=== PATIENT | female | born 1990 | race American Indian/Alaskan Native ===

== ENCOUNTER 2017-10-03 16:05 | Emergency (ER) | payer MEDICAID ==
[2017-10-03 19:21] LABS: Urine Drugs of Abuse Note Disclamer
[2017-10-03 19:30] LABS: Bilirubin,Urine NEG (Negative); Blood,Urine NEG (Negative); Ketones,Urine NEG (Negative); Leukocyte Esterase,Urine NEG (Negative); Mucus,Urine 3+ /HPF; Nitrite,Urine NEG (Negative)
[2017-10-03 19:53] LABS: Basophils % (Auto) 0.5 % (0.0-1.8); Hemoglobin 12.3 gm/dl (10.1-14.3); Mean Corpuscular HGB Conc 33 % (30-34); Mean Corpuscular Hemoglobin 28 pg (28-32); Mean Corpuscular Volume 85 fl (79-97); Platelet Count 148 K/mm3 (140-440); Red Blood Count 4.45 M/mm3 (3.65-5.03); Red Cell Distribution Width 13.2 % (13.2-15.2)
[2017-10-03 20:13] LABS: Anion Gap 15 mmol/L; BUN/Creatinine Ratio 14; Blood Urea Nitrogen 7 mg/dL (7-17); Calcium 8.8 mg/dL (8.4-10.2); Carbon Dioxide 24 mmol/L (22-30); Chloride 100.9 mmol/L (98-107); Glucose 95 mg/dL (65-100); Sodium 136 mmol/L (137-145)
[2017-10-03] MEDS ORDERED: KEPPRA PO ONE (20:58)
--- NOTE | 2017-10-03 20:58 | Emergency Department Report ---
HPI - General Chief Complaint: Alcohol Time Seen by Provider: 10/03/17 20:18 - HPI HPI: This is a 26-year-old -[place]ron[place] female who presents to the emergency department with a complaint of a possible seizure. The patient admits to drinking some alcohol and smoking marijuana this afternoon when she suddenly got very dizzy and passed out. She was found to have urinated on herself, she bit her tongue and after she became awake she was still slightly disoriented. Currently she is awake and alert and says that she just "does not feel good." She has a past medical history of lupus, Sjogren's and fibromyalgia. Her primary care physician is a Dr. Michelle Spence. She has not taken anything for her symptoms prior to presentation. She denies any previous seizures or seizure disorder. ED Past Medical Hx - Past Medical History Additional medical history: Lupus, sjrogrens disease, fibromyalgia - Social History Smoking Status: Never Smoker Substance Use Type: Alcohol, Marijuana - Medications Home Medications: Home Medications Medication Instructions Recorded Confirmed Last Taken Type Hydroxychloroquine [Plaquenil] 200 mg PO QDAY 04/29/15 11/06/15 11/06/15 History ED Review of Systems ROS: Stated complaint: ETOH (SMOKED WEED) Other details as noted in HPI Comment: All other systems reviewed and negative Constitutional: denies: chills, fever Eyes: denies: eye pain, eye discharge, vision change ENT: denies: ear pain, throat pain Respiratory: denies: cough, shortness of breath, wheezing Cardiovascular: denies: chest pain, palpitations Gastrointestinal: nausea, vomiting. denies: abdominal pain, diarrhea Genitourinary: denies: urgency, dysuria, discharge Musculoskeletal: denies: back pain, joint swelling, arthralgia Skin: denies: rash, lesions Neurological: other (dizziness, seizure). denies: headache, weakness, paresthesias Physical Exam - Physical Exam Vital Signs: Vital Signs 10/03/17 10/03/17 10/03/17 17:27 18:55 19:00 Temperature 97.5 F L 98.4 F Pulse Rate 84 77 Respiratory 18 20 Rate Blood Pressure 129/65 117/58 Blood Pressure 115/64 [Right] O2 Sat by Pulse 100 100 100 Oximetry 10/03/17 10/03/17 10/03/17 19:16 19:19 19:30 Temperature 98.4 F Pulse Rate 76 69 Respiratory 17 8 L Rate Blood Pressure 117/58 126/68 Blood Pressure [Right] O2 Sat by Pulse 100 Oximetry 10/03/17 10/03/17 10/03/17 19:46 20:00 20:16 Temperature Pulse Rate 76 85 69 Respiratory 12 10 L 11 L Rate Blood Pressure 117/58 117/58 127/75 Blood Pressure [Right] O2 Sat by Pulse 100 99 99 Oximetry 10/03/17 20:20 Temperature Pulse Rate Respiratory 16 Rate Blood Pressure Blood Pressure [Right] O2 Sat by Pulse 100 Oximetry Physical Exam: GENERAL: The patient is well-developed well-nourished. HENT: Normocephalic. Atraumatic. Patient has moist mucous membranes. EYES: Extraocular motions are intact. Pupils equal reactive to light bilaterally. There is some fatigable horizontal nystagmus. NECK: Supple. Trachea is midline. CHEST/LUNGS: Clear to auscultation. There is no respiratory distress noted. HEART/CARDIOVASCULAR: Regular. There is no tachycardia. There is no gallop rub or murmur. ABDOMEN: Abdomen is soft, nontender. Patient has normal bowel sounds. There is no abdominal distention. Obese habitus. SKIN: Skin is warm and dry. NEURO: The patient is awake, alert, and oriented. The patient is cooperative. The patient has no focal neurologic deficits. The patient has normal speech. Cranial nerves II through XII grossly intact. No dysmetria. No pronator drift. MUSCULOSKELETAL: There is no tenderness or deformity. There is no limitation range of motion. There is no evidence of acute injury. ED Course Vital Signs 10/03/17 10/03/17 10/03/17 17:27 18:55 19:00 Temperature 97.5 F L 98.4 F Pulse Rate 84 77 Respiratory 18 20 Rate Blood Pressure 129/65 117/58 Blood Pressure 115/64 [Right] O2 Sat by Pulse 100 100 100 Oximetry 10/03/17 10/03/17 10/03/17 19:16 19:19 19:30 Temperature 98.4 F Pulse Rate 76 69 Respiratory 17 8 L Rate Blood Pressure 117/58 126/68 Blood Pressure [Right] O2 Sat by Pulse 100 Oximetry 10/03/17 10/03/17 10/03/17 19:46 20:00 20:16 Temperature Pulse Rate 76 85 69 Respiratory 12 10 L 11 L Rate Blood Pressure 117/58 117/58 127/75 Blood Pressure [Right] O2 Sat by Pulse 100 99 99 Oximetry 10/03/17 20:20 Temperature Pulse Rate Respiratory 16 Rate Blood Pressure Blood Pressure [Right] O2 Sat by Pulse 100 Oximetry ED Medical Decision Making - Lab Data Result diagrams: 10/03/17 19:40 10/03/17 19:40 - EKG Data -: EKG Interpreted by Ks EKG shows normal: sinus rhythm, axis, intervals, QRS complexes, ST-T waves Rate: normal - EKG Data When compared to previous EKG there are: previous EKG unavailable Interpretation: normal EKG - Radiology Data Radiology results: report reviewed CT of the head does not show any acute intracranial process including no ischemia, shift, mass, bleeding or skull fracture. - Medical Decision Making 26-year-old female presents to the emergency department after what appears to be a seizure after the patient was taking some alcohol and smoking marijuana earlier in the day. Since she has been in the emergency department she has been awake, alert and oriented without any focal, motor or sensory deficits in her cranial nerve VII intact. CT of the head does not show any bleed, shift, mass or any acute process. Vital signs stable throughout her ED course. Labs have been unremarkable and do not show any etiology of her symptoms. She was reevaluated multiple times for multiple hours and there has been no further seizure-like activity. She appears safe for discharge home at this time. The patient's father says that they have a neurologist that one of them seize and they will get her an appointment in the next few days if possible. Since this is her first time having a seizure and it is not confirmed, she will not be started on any long-term seizure medication. They have been encouraged to return to the emergency department with any further seizure-like activity, worsening of her symptoms or any acute distress. - Differential Diagnosis seizure, syncope, polysubstance abuse Critical Care Time: No Critical care attestation.: If time is entered above; I have spent that time in minutes in the direct care of this critically ill patient, excluding procedure time. ED Disposition Clinical Impression: Seizure, Polysubstance abuse Disposition: DC-01 TO HOME OR SELFCARE Is pt being admited?: No Condition: Stable Instructions: Polysubstance Abuse (ED), New-Onset Seizure in Adults (ED) Additional Instructions: Please follow up with the neurologist as soon as possible. Return to the emergency Department with any worsening of your symptoms or any acute distress. Please try and stay away from any further alcohol or illicit drug use or abuse. Referrals: PRIMARY CARE, [Primary Care Provider] - 3-5 Days ORALIA LIPSCOMB MD [Staff Physician] - 3-5 Days Time of Disposition: 22:14
--- NOTE | 2017-10-03 21:08 | Cat Scan Report ---
FINAL REPORT PROCEDURE: CT HEAD/BRAIN WO CON TECHNIQUE: Computerized tomography of the head was performed without contrast material. HISTORY: Seizure COMPARISON: June 16, 2016 FINDINGS: Skull and scalp: Normal. Paranasal sinuses: Normal. Ventricles and subarachnoid spaces: Normal. Cerebrum: No evidence of hemorrhage, acute infarction or mass . Cerebellum and brainstem: No evidence of hemorrhage, acute infarction or mass. Vasculature: Normal. Comments: None. IMPRESSION: Normal Examination
[2017-10-03 23:13] VITALS: BP 105/63
== END 2017-10-03 23:21 | disposition home or self-care (01) ==
LOC: ED 16:05
DX: F12.10 Cannabis abuse, uncomplicated (principal); R56.9 Unspecified convulsions; M35.00 Sjogren syndrome, unspecified
CPT/HCPCS: 36415; 70450; 80048; 80307; 81001; 84443; 84703; 85025; 93005; 93010; 99284; G0480; 80320

== ENCOUNTER 2018-07-28 07:50 | Outpatient (CLI) | payer MEDICAID ==
[2018-07-28] MEDS ORDERED: LACTATED RINGERS 1,000 ML IV ONE (09:00)
[2018-07-28 09:11] LABS: Bacteria,Urine 1+ /HPF (Negative); Bilirubin,Urine NEG (Negative); Blood,Urine SM (Negative); Color,Urine Amber (Yellow); Mucus,Urine FEW /HPF
[2018-07-28 09:40] VITALS: BP 116/53
== END 2018-07-28 09:50 | disposition home or self-care (01) ==
LOC: TRG 07:50
PROVIDERS: ATTEND Obstetrics & Gynecology
DX: O47.03 False labor before 37 completed weeks of gestation, third trimester (principal); Z3A.36 36 weeks gestation of pregnancy
CPT/HCPCS: 59025; 81001; 96360; J7120

== ENCOUNTER 2018-07-31 08:20 | Inpatient (IN) | payer MEDICAID ==
[2018-07-31] MEDS ORDERED: PEPCID IV NR (09:31)
[2018-07-31] MEDS ORDERED: REGLAN IV NR (09:31)
[2018-07-31] MEDS ORDERED: LACTATED RINGERS 1,000 ML IV ONE (09:42)
--- NOTE | 2018-07-31 09:52 | History and Physical Report ---
History of Present Illness Date of examination: 07/31/18 (pt presents to Triage with c/o ROM) Chief complaint: leaking since overnight History of present illness: EDC Confirmation: 08/28/2018 Gestational Age: 6 2/7 weeks Past History : 2 Term Births: 1 Living Children: 1 Para: 1 # 1 Delivery date: 09/04/2012 Weeks Gestation: 41 Delivery type: Anesthesia type: epidural Delivery location: [facility] Sex: male weight: 8.44 Past Medical History: Anemia-sickle cell trait Sjogren syndrome fibromyalgia Past Surgical History: Reviewed history from 08/03/2012 and no changes required: Abdominal Surgery: Past Medical History Surgery (Non-game designer): Abdominal Surgery: Medical History Comments: shorogen syndrome fibromyaliga Social Hx: Patient is single no etoh, no illicit drug use, no tobacco use Infection History Hx of STD: none Partner hx. of genital herpes: no Rash, Viral, or Febrile illness since last LMP? no Varicella/Chicken Pox Status: no Genetic History Congenital Heart Defect: Mom: no Dad: no Marilou Disease: Mom: no Dad: no Thalassemia Mom: no Dad: no Neural Tube Defect Mom: no Dad: no Down's Syndrome Mom: no Dad: no Davon-Sachs Mom: no Dad: no Sickle Cell Disease/Trait Mom: yes Dad: no Hemophilia Mom: no Dad: no Muscular Dystrophy Mom: no Dad: no Cystic Fibrosis Mom: no Dad: no [place] Chorea Mom: no Dad: no Mental Retardation Mom: no Dad: no Fragile X Mom: no Dad: no Other Genetic/Chromosomal Disorder Mom: no Dad: no Child w/other defect Mom: no Dad: no Comments/Counseling: autism- pt son and her sister Enviromental Exposures Xray Exposure: no Medication, drug, or alcohol use since LMP: no Chemical/Other Exposure: no Exposure to Cat Liter: no Occupational Exposure to Children: none Current Allergies (reviewed today): No known allergies Past History CARDIOVASCULAR SURGICAL TECH History: herpes, other (bacterial vaginosis) Social history: single - Obstetrical History Expected Date of Delivery: 08/28/18 Actual Gestation: 36 Week(s) 0 Day(s) : 2 Para: 1 ( section) Number of Living Children: 1 Medications and Allergies Allergies Allergy/AdvReac Type Severity Reaction Status Date / Time No Known Allergies Allergy Verified 07/28/18 07:54 Home Medications Medication Instructions Recorded Confirmed Last Taken Type Vit-Fe Fumar-FA [ 1 tab PO QDAY 07/28/18 07/28/18 07/27/18 08: 00 History Vitamin] 1 Active Meds: Active Medications Citric Acid/Sodium Citrate (Bicitra) 30 ml PO ONCE ONE Stop: 07/31/18 09:32 Famotidine (Pepcid) 20 mg IV ONCE ONE Stop: 07/31/18 09:32 Cefazolin Sodium (Ancef/Sterile Water 2 Gm/20 Ml) 2 gm in 20 mls @ 80 mls/hr IV PREOP NR; Protocol Lactated Ringer's (Lactated Ringers) 1,000 mls @ 2,250 mls/hr IV PREOP LOURDES Stop: 08/01/18 10:27 Metronidazole (Flagyl 500 Mg/100 Ml) 500 mg in 100 mls @ 200 mls/hr IV ONCE LOURDES ; Protocol Oxytocin/Sodium Chloride (Pitocin/Ns 20 Unit/1000ml Drip) 20 units in 1,000 mls @ 0 mls/hr IV TITR LOURDES Lactated Ringer's (Lactated Ringers) 1,000 mls @ 999 mls/hr IV BOLUS ONE Stop: 07/31/18 10:42 Metoclopramide HCl (Reglan) 10 mg IV ONCE ONE Stop: 07/31/18 09:32 Valacyclovir HCl (Valtrex) 1,000 mg PO QDAY LOURDES - Vital Signs Vital signs: Vital Signs Pulse BP 99 H 122/57 07/31/18 09:23 07/31/18 09:23 Temp Pulse Resp BP Pulse Ox 99 H 122/57 07/31/18 09:23 07/31/18 09:23 - Physical Exam Breasts: Positive: deferred Cardiovascular: Regular rate, Normal S1, Normal S2 Lungs: Positive: Normal air movement Abdomen: Positive: normal appearance, soft, normal bowel sounds. Negative: distention, tenderness Genitourinary (Female): Positive: other (moderate amt of clear fluid noted on RN exam) Vulva: both: normal Vagina: Positive: normal moisture. Negative: discharge Cervix: Negative: lesion, discharge Uterus: Positive: normal size, normal contour Adnexa: both: normal Anus/Rectum: Positive: normal perianal skin, heme negative. Negative: rectal mass, hemorrhoids Extremities: Positive: normal Deep Tendon Reflex Grade: Normal +2 - Obstetrical FHR: category 1 Uterine Contraction Monitor Mode: External Cervical Dilatation: 1 (mod clear fluid noted on exam) Cervical Effacement Percentage: 50 (Nitrazine +) station: -2 Uterine Contraction Pattern: Irregular Uterine Tone Measurement Phase: Resting Uterine Contraction Intensity: Mild Results Result Diagrams: 07/31/18 10:33 All other labs normal. HSV2 + new dx BV+ GBS unknown / had not been collected HBsAg Screen Negative Negative *1 RPR Non Reactive Non Reactive *2 Rubella Antibodies, IgG 1.81 index Immune >0.99 *3 Non-immune <0.90 Equivocal 0.90 - 0.99 Immune >0.99 ABO Grouping B *4 Rh Factor Positive *5 Please note: Prior records for this patient's ABO / Rh type are not available for additional verification. Antibody Screen Negative Negative *6 WBC 4.5 x10E3/uL 3.4-10.8 *7 RBC 3.96 x10E6/uL 3.77-5.28 *8 Hemoglobin [L] 10.9 g/dL 11.1-15.9 *9 Hematocrit [L] 32.7 % 34.0-46.6 *10 MCV 83 fL 79-97 *11 MCH 27.5 pg 26.6-33.0 *12 MCHC 33.3 g/dL 31.5-35.7 *13 RDW 14.1 % 12.3-15.4 *14 Platelets [L] 147 x10E3/uL 150-379 *15 Neutrophils 66 % Not Estab. *16 Lymphs 22 % Not Estab. *17 Monocytes 11 % Not Estab. *18 Eos 1 % Not Estab. *19 Basos 0 % Not Estab. *20 ! Immature Cells <No Reported Value> *21 Neutrophils (Absolute) 3.0 x10E3/uL 1.4-7.0 *22 Lymphs (Absolute) 1.0 x10E3/uL 0.7-3.1 *23 Monocytes(Absolute) 0.5 x10E3/uL 0.1-0.9 *24 Eos (Absolute) 0.0 x10E3/uL 0.0-0.4 *25 Baso (Absolute) 0.0 x10E3/uL 0.0-0.2 *26 ! Immature Granulocytes 0 % Not Estab. *27 ! Immature Grans (Abs) 0.0 x10E3/uL 0.0-0.1 *28 ! NRBC <No Reported Value> *29 Hematology Comments: <No Reported Value> *30 Tests: (2) Panel [id number] ([id number]) HIV Screen 4th Generation wRfx Non Reactive Non Reactive *31 Tests: (3) HCV Ab w/Rflx to Verification ([id number]) ! HCV Ab <0.1 s/co ratio 0.0-0.9 *32 Tests: (4) Comment: ([id number]) ! Comment: SPRCS *33 Non reactive HCV antibody screen is consistent with no HCV infection, unless recent infection is suspected or other evidence exists to indicate HCV infection. Tests: (5) Urine Culture, Routine ([id number]) Urine Culture, Routine Final report *34 Tests: (6) Result ([id number]) ! Result 1 No growth Assessment and Plan Pt grossly ruptured Fluid continues to leak out on my exam SVE 2-3,100,-2 Pt prepared for repeat c/s Treated for BV and given dose of Valtrex po. GBS unknown Ampicillin given Consent signed aware.
[2018-07-31] MEDS ORDERED: ANCEF/STERILE WATER 2 GM/20 ML 2 GM/20 ML SYRINGE IV NR (10:00)
[2018-07-31] MEDS ORDERED: VALTREX PO SCH (10:00)
[2018-07-31] MEDS ORDERED: FLAGYL 500 MG/100 ML 500 MG/100 ML BAG IV SCH (10:00)
[2018-07-31] MEDS ORDERED: LACTATED RINGERS 1,000 ML IV SCH (10:00)
[2018-07-31] MEDS ORDERED: PITOCin/NS 20 UNIT/1000ML DRIP 20 UNITS/1,000 ML BAG IV SCH ×2 (10:00→19:00)
[2018-07-31] MEDS ORDERED: BICITRA PO NR (10:30)
[2018-07-31] MEDS ORDERED: PHENERGAN PR PRN (10:46)
[2018-07-31] MEDS ORDERED: DILAUDID IV PRN (10:46)
[2018-07-31] MEDS ORDERED: NARCAN 0.4 MG/1 ML IV PRN ×2 (10:46→17:12)
[2018-07-31] MEDS ORDERED: PHENERGAN PO PRN (10:46)
--- NOTE | 2018-07-31 10:46 | Anesthesia Consultation ---
Anesthesia Consult and Med Hx Date of service: 07/31/18 - Airway Anesthetic Teeth Evaluation: Good ROM Head & Neck: Adequate Mental/Hyoid Distance: Adequate Mallampati Class: Class III Intubation Access Assessment: Possibly Difficult - Pre-Operative Health Status ASA Pre-Surgery Classification: ASA3 Proposed Anesthetic Plan: Epidural, Spinal - Pulmonary Hx Asthma: No - Cardiovascular System Hx Hypertension: No - Central Nervous System Hx Neuromuscular Disorder: Yes (fibromyalgea, takes hydrocodone) Hx Seizures: Yes Hx Psychiatric Problems: No - Endocrine Hx Renal Disease: No Hx Hypothyroidism: No Hx Hyperthyroidism: No - Hematic Hx Anemia: No Hx Sickle Cell Disease: Yes (Trait) - Other Systems Hx Alcohol Use: No Hx Obesity: Yes (BMI 43.9)
--- NOTE | 2018-07-31 10:46 | Anesthesia Day of Surgery ---
Anesthesia Day of Surgery - Day of Surgery Patient Examined: Yes Patient H&P Reviewed: Yes Patient is NPO: Yes
[2018-07-31] MEDS ORDERED: SODIUM CHLORIDE FLUSH SYRINGE 10 ML IV NR (11:00)
[2018-07-31 11:02] LABS: Basophils % (Auto) 0.2 % (0.0-1.8); Eosinophils % (Auto) 0.3 % (0.0-4.3); Hematocrit 32.3 % (30.3-42.9); Hemoglobin 10.6 gm/dl (10.1-14.3); Lymphocytes # (Auto) 0.7 K/mm3 (1.2-5.4); Lymphocytes % (Auto) 10.2 % (13.4-35.0); Mean Corpuscular HGB Conc 33 % (30-34); Mean Corpuscular Hemoglobin 27 pg (28-32); Mean Corpuscular Volume 82 fl (79-97); Monocytes # (Auto) 0.5 K/mm3 (0.0-0.8); Monocytes % (Auto) 7.2 % (0.0-7.3); Platelet Count 149 K/mm3 (140-440); Red Blood Count 3.97 M/mm3 (3.65-5.03); Red Cell Distribution Width 16.1 % (13.2-15.2)
[2018-07-31] MEDS ORDERED: BRETHINE SUB-Q ONE (12:31)
[2018-07-31] MEDS ORDERED: POLYCILLIN IM ONE (12:34)
[2018-07-31] MEDS ORDERED: SUBLIMAZE IV ONE (13:00)
[2018-07-31] MEDS ORDERED: POLYCILLIN/NS 2 GM/100 ML 2 GM/100 ML BAG IV ONE (13:50)
[2018-07-31] MEDS ORDERED: WATER FOR IRRIG STERILE IR ONE (16:30)
[2018-07-31] MEDS ORDERED: NACL 0.9% IR ONE (16:30)
[2018-07-31] MEDS ORDERED: NEO SYNEPHRINE/NS Syringe(OR USE) IV ONE (16:51)
[2018-07-31] MEDS ORDERED: ASTRAMORPH PF 10MG/10ML ONE (16:51)
--- NOTE | 2018-07-31 17:11 | Operative Report ---
Operative Report Operative Report: Date of procedure: 07/31/2018 Pre-operative diagnosis: 36 weeks gestation Premature rupture of membranes labor Post-operative diagnosis: Same Procedure name(s): Repeat low transverse section via Pfannenstiel skin incision Surgeon: Dr. Mantilla Teradata Developer: DEIDRE Anesthesia: Combined spinal epidural EBL: 800 mL Urine output: 200 mL of concentrated urine out at the end of the procedure Fluids: 1800 mL Findings: Liveborn male weight 7 lbs. 2 oz. Apgars of 8 and 9 at one and 5 minutes Grossly normal fallopian tubes and ovaries bilaterally Infant was born via vacuum extraction with one application of the vacuum and 1 pull Indications: Patient presented to triage with gross rupture of membranes. While waiting section patient's cervix was noted to change to approximately 2-3 cm dilated. Last week when seen in triage and evaluated patient's cervix was noted to be closed. Decision was made this time to proceed with section. All risks benefits and alternatives were discussed with the patient. Consents were signed and placed on the chart. Procedure: Patient was taking to the operating room. Patient was then prepped and draped in sterile fashion after anesthesia was found to be adequate. A low transverse skin incision was made with the scalpel through previous incisional scar and carried down to the underlying layer of fascia with the Bovie. The fascia was then incised in the midline and this incision was extended bilaterally with the Bovie. The superior aspect of the fascia was grasped with Alonso clamps tented upward and dissected off of the anterior rectus muscles with the scalpel. In similar fashion the inferior aspect of the fascia was grasped with Alonso clamps tented upward and dissected off of the anterior rectus muscles. The rectus muscles were then bluntly divided in the midline. The peritoneum was identified and entered into sharply. The Francisco retractor was placed. The bladder blade was placed. A lower transverse uterine incision was made with the scalpel and extended bilaterally with dissection. Artificial rupture of membranes was performed yielding clear amniotic fluid. It should be noted that prior to completely rupturing membranes there were 2 small holes that were noted and which amniotic fluid was leaking from the amniotic sac. The 's head was then delivered atraumatically with one application of the Kiwi vacuum. Prior to placement of the vacuum infant's head was examined anterior fontanelle was noted care was taken not to apply to this area. A 1 pull was used to deliver head. At which point the pressure was released and the Kiwi vacuum was removed without difficulty. The anterior shoulder and rest of infant delivered without difficulty. The umbilical cord was clamped x2. The cord was cut. The infant was then placed in sterile bassinet. The cord blood was collected. The placenta was manually extracted in its entirety. The uterus was exteriorized and cleared of all clots and debris. The uterine incision was closed using 0 Vicryl in a running locking fashion. Several [id number] sutures were used along the incision line to secure excellent hemostasis. Tisseel was placed along the incision line to secure excellent hemostasis. The posterior cul-de-sac was copiously irrigated. The uterus was returned to the abdomen. The gutters were also irrigated. The Francisco retractor was removed from the abdomen The anterior rectus muscles were reapproximated using 3-0 Vicryl. The anterior rectus fascia was reapproximated using 0 Vicryl in a running fashion. The subcuticular fat was reapproximated using 2-0 Vicryl in a running fashion. The skin was reapproximated with 4-0 Monocryl in a subcuticular stitch. The patient tolerated the procedure well. Sponge lap and needle counts were all correct x3. Patient was taken to the recovery room awake and in stable condition.
[2018-07-31] MEDS ORDERED: LANSINOH TP PRN (17:12)
[2018-07-31] MEDS ORDERED: TUCKS PAD TP PRN (17:12)
[2018-07-31] MEDS ORDERED: MYLICON PO PRN (17:12)
[2018-07-31] MEDS ORDERED: SODIUM CHLORIDE FLUSH SYRINGE 10 ML IV SCH (18:00)
[2018-07-31] MEDS: TORADOL IV PRN (18:27)
[2018-07-31] MEDS: ZOFRAN IV PRN ×2 (18:30→23:44)
[2018-07-31] MEDS: ANCEF/NS 1 GM/50 ML 1 GM/50 ML BAG IV SCH (21:34)
[2018-07-31] MEDS: D5LR 1,000 ML IV SCH (23:44)
[2018-08-01 04:34] LABS: Hematocrit 28.8 % (30.3-42.9); Hemoglobin 9.3 gm/dl (10.1-14.3)
[2018-08-01] MEDS ORDERED: BOOSTRIX IM ONE (06:00)
[2018-08-01] MEDS: ANCEF/NS 1 GM/50 ML 1 GM/50 ML BAG IV SCH (06:01)
[2018-08-01] MEDS: TORADOL IV PRN (06:01)
--- NOTE | 2018-08-01 08:35 | Progress Note ---
Assessment and Plan Patient w/o complaints, dressing D&I, fundus firm, lochia scant, asymptomatic anemia from blood loss, acute, H&H 9.3/28.8, VSSAF. Continue postop pathway. - Patient Problems (1) Previous section Current Visit: Yes Status: Acute Subjective - Subjective Date of service: 08/01/18 Principal diagnosis: postop day #1 s/p repeat c/s Patient reports: appetite normal, voiding normally, pain well controlled, flatus , ambulating normally, no dizzy ambulation, no nauseated : doing well, bottle feeding Objective - Vital Signs Latest vital signs: Vital Signs Temp Pulse Resp BP BP Pulse Ox 08/01/18 07:33 98.1 F 77 18 125/71 08/01/18 05:15 98.4 F 71 18 106/66 96 08/01/18 00:40 98.6 F 75 18 103/62 07/31/18 18:50 97.6 F 98 H 18 102/48 95 07/31/18 15:14 112 H 119/56 07/31/18 14:44 106 H 124/58 07/31/18 14:16 116 H 99 07/31/18 14:13 106 H 132/61 92 07/31/18 14:11 115 H 99 07/31/18 14:06 111 H 96 07/31/18 14:01 125 H 98 07/31/18 13:55 118 H 98 07/31/18 13:50 113 H 98 07/31/18 13:45 119 H 96 07/31/18 13:44 121 H 128/56 94 07/31/18 13:40 117 H 98 07/31/18 13:35 116 H 100 07/31/18 13:30 115 H 98 07/31/18 13:26 119 H 98 07/31/18 13:20 119 H 98 07/31/18 13:15 112 H 97 07/31/18 13:13 121 H 131/58 07/31/18 13:10 123 H 98 07/31/18 13:05 117 H 97 07/31/18 13:00 122 H 96 07/31/18 12:55 118 H 95 07/31/18 12:50 118 H 95 07/31/18 12:45 111 H 97 07/31/18 12:44 117 H 134/57 07/31/18 12:40 96 H 98 07/31/18 12:15 88 131/52 07/31/18 11:43 86 113/57 07/31/18 11:22 98.6 F 07/31/18 11:16 103 H 98 07/31/18 11:11 96 H 119/54 94 07/31/18 11:10 95 H 97 07/31/18 09:23 99 H 122/57 Intake and Output 07/31/18 08/01/18 08/01/18 23:59 07:59 15:59 Intake Total 1475 260 Output Total 400 450 Balance 1075 -190 Intake: IV 1475 ANCEF/NS 1 GM/50 ML 1 gm 50 In 50 ml @ 100 mls/hr IV Q8H [facility] Rx#:[id number] Right Wrist 125 Intake, Free Water 260 Output: Urine 400 450 Indwelling Catheter 450 Other: Total, Output Amount 450 Estimated Blood Loss 800 - Exam Breasts: Present: normal Cardiovascular: Present: Regular rate Lungs: Present: Clear to auscultation, Normal air movement Abdomen: Present: normal appearance, soft Vulva: both: normal Uterus: Present: normal, firm, fundal height at umbilicus Extremities: Present: normal Incision: Present: normal, dry, dressed - Labs Labs: Abnormal lab results 07/31/18 08/01/18 Range/Units 10:33 04:13 Hgb 9.3 L (10.1-14.3) gm/dl Hct 28.8 L (30.3-42.9) % MCH 27 L (28-32) pg RDW 16.1 H (13.2-15.2) % Lymph % (Auto) 10.2 L (13.4-35.0) % Lymph # 0.7 L (1.2-5.4) K/mm3 Seg Neutrophils % 82.1 H (40.0-70.0) %
[2018-08-01] MEDS: D5LR 1,000 ML IV SCH (10:47)
[2018-08-01] MEDS: NORCO 5/325 PO PRN ×2 (19:03→22:38)
[2018-08-02] MEDS: NORCO 5/325 PO PRN ×3 (04:31→17:44)
--- NOTE | 2018-08-02 06:40 | Discharge Summary ---
Providers - Providers Date of Admission: 07/31/18 08:21 Date of discharge: 08/02/18 (pt agrees with d/c) Attending physician: NABEEL MATHEW Primary care physician: NABEEL MATHEW Hospitalization Reason for admission: labor, rupture of membranes Delivery: Procedure: repeat low transverse Episiotomy: none Laceration: none Incision: normal, dry, intact Other procedures: none complications: none Discharge diagnosis: IUP at term delivered baby: female Hospital course: uncomplicated repeat section Pt resting w/o complaint VSS FF below umb Lochia small Dressing removed Incision D&I H&H stable Asymptomatic anemia. Doing well s/p r c/s P: d/c today with instructions RTO 1 week postop check Condition at discharge: Good Disposition: DC-01 TO HOME OR SELFCARE - Discharge Diagnoses (1) delivery delivered Status: Acute Comment: RTO 1 week postop care Plan - Provider Discharge Summary Activity: routine, no sex for 6 weeks, no heavy lifting 4 weeks, no strenuous exercise Diet: routine Instructions: routine Additional instructions: [] Smoking cessation referral if applicable(refer to patient education folder for contact #) [] Refer to [facility]'s [facility] Booklet Call your doctor immediately for: * Fever > 100.5 * Heavy vaginal bleeding ( >1 pad per hour) * Severe persistent headache * Shortness of breath * Reddened, hot, painful area to leg or breast * Drainage or odor from incision. * Keep incision clean and dry at all times and follow doctor's instructions regarding bathing/showering - Follow up plan Follow up: NABEEL MATHEW MD [Primary Care Provider] - 7 Days (Congratulations! Please call [phone] to schedule your postoperative visit in 1 week. Take medications as prescribed. Call with concerns.)
[2018-08-03] MEDS: NORCO 5/325 PO PRN (11:01)
[2018-08-03 13:02] VITALS: BP 123/83
== END 2018-08-03 14:25 | disposition home or self-care (01) | DRG 765 ==
LOC: TRG 08:20 → LD 08:21 → TRG 08:21 → APU 16:49 → OB 18:41
PROVIDERS: ADMIT Obstetrics & Gynecology; ATTEND Obstetrics & Gynecology
PROC: 10D00Z1 Extraction of Products of Conception, Low, Open Approach (ICD-10-PCS; principal; 2018-07-31)
PROC: 3E0234Z Introduction of Serum, Toxoid and Vaccine into Muscle, Percutaneous Approach (ICD-10-PCS; 2018-08-01)
DX: O60.14X0 Preterm labor third trimester with preterm delivery third trimester, not applicable or unspecified (principal); Z68.41 Body mass index [BMI] 40.0-44.9, adult; O98.32 Other infections with a predominantly sexual mode of transmission complicating childbirth; Z3A.36 36 weeks gestation of pregnancy; Z37.0 Single live birth; E66.01 Morbid (severe) obesity due to excess calories; Z71.3 Dietary counseling and surveillance; Z23 Encounter for immunization; O75.89 Other specified complications of labor and delivery; M79.7 Fibromyalgia; O99.214 Obesity complicating childbirth; O99.02 Anemia complicating childbirth; D64.9 Anemia, unspecified; A60.00 Herpesviral infection of urogenital system, unspecified
CPT/HCPCS: 36415; 85014; 85018; 85025; 86592; 86850; 86900; 86901; 88307; C9250; J0290; J0690; J1885; J2274; J2370; J2405; J2590; J2765; J3010; J3105; J7120; J7121; Q0169

== ENCOUNTER 2019-03-09 16:57 | Emergency (ER) | payer MEDICAID, OTHER ==
--- NOTE | 2019-03-09 17:25 | Emergency Department Report ---
Chief Complaint: Chest Pain Stated Complaint: ANXIETY FLARE UP/CHEST PAIN Time Seen by Provider: 03/09/19 17:20 - HPI History of Present Illness: This is a 28 y.o. female that presents to the ER with anxiety and chest pain since yesterday. PMH of anxiety Patient is unsure of weeks. She think she is 13 weeks gestation. LMP 12/08/18. A0. Denies SI/HI - Exam Vital Signs: Vital Signs 03/09/19 17:21 Temperature 98.2 F Pulse Rate 78 Respiratory 20 Rate Blood Pressure 119/71 [Left] O2 Sat by Pulse 99 Oximetry MSE screening note: Focused history and physical exam performed. Due to findings the following was ordered: EKG ACC for further evaluation. ED Disposition for MSE Condition: Stable
[2019-03-09 19:36] LABS: Basophils % (Auto) 0.4 % (0.0-1.8); Eosinophils % (Auto) 0.4 % (0.0-4.3); Hematocrit 36.5 % (30.3-42.9); Lymphocytes # (Auto) 0.9 K/mm3 (1.2-5.4); Lymphocytes % (Auto) 23.7 % (13.4-35.0); Mean Corpuscular HGB Conc 33 % (30-34); Mean Corpuscular Volume 83 fl (79-97); Monocytes # (Auto) 0.3 K/mm3 (0.0-0.8); Monocytes % (Auto) 7.4 % (0.0-7.3); Platelet Count 136 K/mm3 (140-440); Red Blood Count 4.38 M/mm3 (3.65-5.03); Red Cell Distribution Width 15.6 % (13.2-15.2)
[2019-03-09 19:48] LABS: Alanine Aminotransferase 10 units/L (7-56); Albumin 3.4 g/dL (3.9-5); BUN/Creatinine Ratio 22; Blood Urea Nitrogen 11 mg/dL (7-17); Calcium 8.7 mg/dL (8.4-10.2); Hemolysis Index 15
[2019-03-09 21:25] VITALS: BP 103/45
== END 2019-03-09 22:49 | disposition home or self-care (01) ==
LOC: ED 16:57
DX: F41.9 Anxiety disorder, unspecified (principal); Z53.21 Procedure and treatment not carried out due to patient leaving prior to being seen by health care provider
CPT/HCPCS: 36415; 80053; 85025; 93005; 93010